=== PATIENT | female | born 1975 | race Caucasian/White ===

== ENCOUNTER 2017-10-02 15:03 | Emergency (ER) | payer OTHER ==
[~2017-10-02] VITALS: Ht 167.6 cm; Wt 104.1 kg
[2017-10-02] MEDS ORDERED: PRILOSEC20 MG PO (15:28)
[2017-10-02] MEDS ORDERED: VITAMIN D34000 UNIT PO (15:29)
[2017-10-02] MEDS ORDERED: MULTIVITAMIN1 EAC2 PO (15:29)
[2017-10-02 16:24] LABS: BASOPHIL (%) 0.3 % (0-1); EOSINOPHIL (%) 0.3 % (0-5); HEMATOCRIT 31.2 % (36.0-46.0); HEMOGLOBIN 9.2 G/DL (11.9-15.5); IMMATURE GRANULOCYTE (%) 0.7 % (0.0-0.7); LYMPHOCYTE (%) 10.5 % (15-42); LYMPHOCYTE COUNT 1.6 K/uL (1.0-2.8); MCH 20.4 PG (29.0-34.0); MCHC 29.5 G/DL (30.0-36.0); MONOCYTE (%) 4.5 % (3-12); MONOCYTE COUNT 0.7 K/uL (0-0.8); NEUTROPHIL (%) 83.7 % (45-76); NEUTROPHIL COUNT 12.6 K/uL (1.8-6.4); PLATELET COUNT 411 K/uL (156-360); RBC DIS.WIDTH-SD 47.8 % (39-53); RED BLOOD COUNT 4.52 M/uL (3.80-5.20)
[2017-10-02 16:30] LABS: ALBUMIN 4.3 g/dL (3.2-4.8)
[2017-10-02 16:31] LABS: CHLORIDE 108 mEq/L (99-109); POTASSIUM 3.8 mEq/L (3.7-5.4); SODIUM 140 mEq/L (136-147)
[2017-10-02 16:33] LABS: GLUCOSE 106 mg/dL (70-99); TOTAL PROTEIN 7.1 g/dL (6.4-8.3)
[2017-10-02 16:35] LABS: TOTAL BILIRUBIN 0.4 mg/dL (0.0-1.0)
[2017-10-02 16:36] LABS: ALKALINE PHOSPHATASE 104 IU/L (3-129)
[2017-10-02 16:37] LABS: CREATININE 0.8 mg/dL (0.6-1.3); GFR ESTIMATE (CALCULATED) > 59 mL/min/
[2017-10-02 16:38] LABS: AST (GOT) 44 IU/L (2-34); UREA NITROGEN (BUN) 15 mg/dL (9-23)
[2017-10-02 16:39] LABS: TROP-I INTERPRETATION NEGATIVE; TROPONIN-I < 0.01 ng/mL (0.0-0.30)
[2017-10-02 16:40] LABS: ALT (GPT) 27 IU/L (3-49); LIPASE 42 U/L (1.0-51.0)
[2017-10-02 19:43] VITALS: BP 122/64
== END 2017-10-02 19:43 | disposition home or self-care (01) ==
LOC: EME 15:03
PROVIDERS: Emergency Medicine
DX: K80.70 Calculus of gallbladder and bile duct without cholecystitis without obstruction (principal); K21.9 Gastro-esophageal reflux disease without esophagitis
CPT/HCPCS: 71046; 76705; 80053; 81003; 81025; 83605; 83690; 84484; 85025; 93005; 99281; 99285